=== PATIENT | female | born 1995 | race Caucasian/White ===

== ENCOUNTER 2016-12-12 21:07 | Emergency (ER) | payer OTHER ==
[2016-12-12 21:18] VITALS: BMI 19.0
[2016-12-12] MEDS ORDERED: ACETAMINOPHEN 1000 MG/100 ML VIAL (NON FORMULARY) IVPB ONE (21:37)
--- NOTE | 2016-12-12 21:39 | PDOC ---
[id number] No Limitations - History of Present Illness Initial Comments: 12/12/16 21:33 Patient is a 21 year old female with no past medical history complaining of left breast pain since 10 am, associated with fever. States she noticed a painful lump in the left breast. Pain is 6/10, worse when palpated. No prior episode of these symptoms. She took Advil at 6 PM without relief of symptoms. She is not breast-feeding, denies . LMP 12/08/16. No family history of breast cancer. Denies cough, dysuria, PMHx: neg PSocHX: neg etoh, drug, cig PFamHx: neg for breast CA ALL: NKDA GENERAL/CONSTITUTIONAL: (+) fever or chills. No weakness. No weight change.] HEAD, EYES, EARS, NOSE AND THROAT: [No change in vision. No ear pain or discharge. No sore throat.] CARDIOVASCULAR: [No chest pain or shortness of breath.] RESPIRATORY: [No cough, wheezing, or hemoptysis.] GASTROINTESTINAL: [No nausea, vomiting, diarrhea or constipation. No rectal bleeding.] GENITOURINARY: [No dysuria, frequency, or change in urination.] MUSCULOSKELETAL: [No joint or muscle swelling or pain. No neck or back pain.] SKIN AND BREASTS: [No rash or easy bruising.] NEUROLOGIC: [No headache, vertigo, loss of consciousness, or loss of sensation.] PSYCHIATRIC: [No depression or anxiety.] ENDOCRINE: [No increased thirst. No abnormal weight change.] HEMATOLOGIC/LYMPHATIC: [No anemia, easy bleeding, or history of blood clots.] ALLERGIC/IMMUNOLOGIC: [No hives or skin allergy. No latex allergy.] GENERAL: [The patient is awake, alert, and fully oriented, in moderate distress. ] HEAD: [Normal with no signs of trauma.] EYES: [Pupils equal, round and reactive to light, extraocular movements intact, sclera anicteric, conjunctiva clear.] ENT: [Ears normal, nares patent, oropharynx clear without exudates. Moist mucous membranes.] NECK: [Normal range of motion, supple without lymphadenopathy, JVD, or masses.] LUNGS: [Breath sounds equal, clear to auscultation bilaterally. No wheezes, and no crackles.] HEART: [Regular rate and rhythm, normal S1 and S2 without murmur, rub.] BREAST: (+) tenderness mass to the medial aspect of the left breast 6x6 cm, no nipple discharge, no wrinkling of skin, normal skin ABDOMEN: [Soft, nontender, normoactive bowel sounds. No guarding, no rebound. No masses.] EXTREMITIES: [Normal range of motion, no edema. No clubbing or cyanosis. No cords, erythema, or tenderness.] NEUROLOGICAL: [Cranial nerves II through XII grossly intact. Normal speech, normal gait.] PSYCH: [Normal mood, normal affect.] SKIN: [Warm, Dry, normal turgor, no rashes or lesions noted.] <Tejal Daily - Last Filed: 12/13/16 05:26> <Jacinta Johnson - Last Filed: 12/17/16 17:14> - General Chief Complaint: Pain Stated Complaint: CHEST PAIN Time Seen by Provider: 12/12/16 21:23 Past History - Past Medical History Asthma: No Cancer: No Cardiac Disorders: No Diabetes: No HTN: No Seizures: No Thyroid Disease: No - Immunization History Immunization Up to Date: Yes - Psycho/Social/Smoking Cessation Hx Anxiety: No Suicidal Ideation: No Smoking History: Never smoked Have you smoked in the past 12 months: No Hx Alcohol Use: No Drug/Substance Use Hx: No Substance Use Type: None Hx Substance Use Treatment: No <Tejal Daily - Last Filed: 12/13/16 05:26> <Jacinta Johnson - Last Filed: 12/17/16 17:14> - Past Medical History Allergies/Adverse Reactions: Allergies Allergy/AdvReac Type Severity Reaction Status Date / Time No Known Allergies Allergy Verified 12/12/16 21:12 Home Medications: Ambulatory Orders Amoxicillin/Potassium Clav [Augmentin 875-125 Tablet] 1 each PO BID #20 tablet 12/13/16 Naproxen Sodium [Midol] 220 mg PO BID #10 tablet 12/13/16 *Physical Exam - Vital Signs Last Vital Signs Temp Pulse Resp BP Pulse Ox 100.4 F H 113 H 18 91/51 98 12/12/16 21:12 12/12/16 21:12 12/12/16 21:12 12/12/16 21:12 12/12/16 21:12 <AbimbolaTejal - Last Filed: 12/13/16 05:26> - Vital Signs Last Vital Signs Temp Pulse Resp BP Pulse Ox 98.6 F 69 18 109/63 100 12/13/16 01:41 12/13/16 01:37 12/13/16 01:37 12/13/16 01:37 12/13/16 01:37 <Jacinta Johnson - Last Filed: 12/17/16 17:14> ED Treatment Course - LABORATORY CBC & Chemistry Diagram: 12/12/16 21:40 12/12/16 21:40 <ChapinLawrenceTejal - Last Filed: 12/13/16 05:26> - LABORATORY CBC & Chemistry Diagram: 12/12/16 21:40 12/12/16 21:40 - ADDITIONAL ORDERS Additional order review: 12/12/16 21:40 Blood Culture - Preliminary Blood - Peripheral Venous NO GROWTH OBTAINED AFTER 96 HOURS, INCUBATION TO CONTINUE FOR 1 DAYS. 12/12/16 21:40 Blood Culture - Preliminary Blood - Peripheral Venous NO GROWTH OBTAINED AFTER 96 HOURS, INCUBATION TO CONTINUE FOR 1 DAYS. 12/12/16 21:40 RBC 4.37 MCV 89.3 MCHC 33.1 RDW 14.6 D MPV 7.1 L D Neutrophils % 83.7 H D Lymphocytes % 6.9 L D Monocytes % 2.9 L Eosinophils % 6.2 H Basophils % 0.3 - Medications Given in the ED: ED Medications Discontinued Medications Generic Name Dose Route Start Last Admin Trade Name Abida PRN Reason Stop Dose Admin Acetaminophen 1,000 mg 12/12/16 21:37 12/12/16 21:45 Ofirmev Injection - IVPB 12/12/16 21:38 1,000 mg ONCE ONE Administration Amoxicillin/Clavulanate Potassium 1 tab 12/13/16 01:15 12/13/16 01:18 Augmentin - 875mg Tablet PO 12/13/16 01:16 1 tab ONCE ONE Administration <Jacinta Johnson - Last Filed: 12/17/16 17:14> Medical Decision Making - Medical Decision Making 12/12/16 21:33 Patient is a 21 year old female with no past medical history complaining of left breast pain since 10 am, associated with fever with a discrete 4 x 4 tender mass on exam. Will have to rule out abscess. Ultrasound breasts, labs, Tylenol IV and IV fluids. Labs reviewed noted to have WBC of 12.7, but UA is negative 12/13/16 00:00 Called by radiology to report no acute findings on the breasts ultrasound, no abscess. However a final report will be sent by the Mammo specialist is in the morning. Procedure: Under sterile techinque, needle aspiration done with no fluid return. Patient was put on Augmentin 875 mg by mouth in the ER, and was instructed to return in 24 hours to the fast track area without fail for reassessment. The area of the swelling was marked instructed that if it goes beyond to return to the emergency room right away. ician within 24-72 hours. 12/13/16 01:44 Selected Entries 12/13/16 12/13/16 01:37 01:41 Temperature 98.6 F Pulse Rate [ 69 Right Apical] Blood Pressure 109/63 [Right Arm] O2 Sat by Pulse 100 Oximetry (%) I discussed the physical exam findings, ancillary test results and final diagnoses with the patient. I answered all of the patient's questions. The patient was satisfied with the care received and felt comfortable with the discharge plan and treatment plan. The Patient agrees to follow up with the primary care physician within 24-72 hours. <Tejal Daily - Last Filed: 12/13/16 05:26> *DC/Admit/Observation/Transfer <Tejal Daily - Last Filed: 12/13/16 05:26> <Jacinta Johnson - Last Filed: 12/17/16 17:14> Diagnosis at time of Disposition: Breast abscess Fever Qualifiers: Fever type: unspecified Qualified Code(s): R50.9 - Fever, unspecified - Discharge Dispostion Disposition: HOME Condition at time of disposition: Stable - Prescriptions Prescriptions: Amoxicillin/Potassium Clav [Augmentin 875-125 Tablet] 1 each PO BID #20 tablet - Referrals Referrals: Rosa Veloz [Primary Care Provider] - - Patient Instructions Printed Discharge Instructions: DI for Skin Abscess Additional Instructions: I discussed the physical exam findings, ancillary test results and final diagnoses with the patient. I answered all of the patient's questions. The patient was satisfied with the care received and felt comfortable with the discharge plan and treatment plan. The Patient agrees to follow up with the primary care physician within 24-72 hours. You must return within 24 hours for reassessment. Continue antibiotics as prescribed, take Tylenol and Motrin as scheduled for the next 24 hours.
[2016-12-12] MEDS ORDERED: ACETAMINOPHEN INJECTION 100 ML IVPB ONE (21:53)
[2016-12-12 21:54] LABS: BASOPHIL 0.3 % (0-2.0); EOSINOPHIL 6.2 % (0-4.5); MCH 29.6 pg (25.7-33.7); MCHC 33.1 g/dl (32.0-36.0); MEAN CELL VOLUME 89.3 fl (80-96); MEAN PLT VOLUME 7.1 fl (7.5-11.1); NEUTROPHILS 83.7 % (42.8-82.8); PLATELET COUNT 307 K/MM3 (134-434); RDW 14.6 % (11.6-15.6); WHITE BLOOD COUNT 12.5 K/mm3 (4.0-10.0)
[2016-12-12 22:19] LABS: ALK PHOS 82 U/L (45-117); ANION GAP 9 (8-16); BILIRUBIN,TOTAL 0.7 mg/dL (0.2-1.0); CALCIUM 9.2 mg/dL (8.5-10.1); CO2 27 mmol/L (21-32); CREATININE 0.7 mg/dL (0.55-1.02); GLUCOSE,RANDOM 91 mg/dL (74-106); SGOT/AST 20 U/L (15-37); SGPT/ALT 27 U/L (12-78); TOT PROT 7.4 g/dl (6.4-8.2)
[2016-12-12 22:23] LABS: URINE APPEARANCE CLEAR; URINE BILIRUBIN NEGATIVE (NEGATIVE); URINE BLOOD NEGATIVE (NEGATIVE); URINE COLOR LTYELLOW; URINE GLUCOSE (UA) NEGATIVE (NEGATIVE); URINE KETONE NEGATIVE (NEGATIVE); URINE LEUK ESTERASE NEGATIVE (NEGATIVE); URINE NITRITE NEGATIVE (NEGATIVE); URINE PROTEIN NEGATIVE (NEGATIVE); URINE UROBILINOGEN NEGATIVE E.U./dl (0.2-1.0)
[2016-12-13] MEDS ORDERED: LIDOCAINE HCL 2% (20ML MULTI-DOSE VIAL) NR ONE (00:21)
[2016-12-13] MEDS ORDERED: AMOX TR/POT CLAV 875MG/125MG TABLETS (FP) PO ONE (01:15)
[2016-12-13] MEDS ORDERED: AMOX TR/POT CLAV 875MG/125MG TABLETS (FP) ONE (01:20)
[2016-12-13 01:38] VITALS: BP 109/63; PULSE 69
[2016-12-13 01:42] VITALS: TEMP 98.6
== END 2016-12-13 02:12 | disposition home or self-care (01) ==
LOC: JER 21:07
PROC: 3E033NZ Introduction of Analgesics, Hypnotics, Sedatives into Peripheral Vein, Percutaneous Approach (ICD-10-PCS; principal; 2016-12-12)
DX: N61.1 Abscess of the breast and nipple (principal); R50.9 Fever, unspecified
CPT/HCPCS: 36415; 76641-TC-LT; 80053; 81003; 83605; 84703; 85025; 87040; 96374; 99283-25

== ENCOUNTER 2016-12-13 08:47 | Emergency (ER) | payer OTHER ==
[2016-12-13 08:55] VITALS: BP 92/60; PULSE 119; TEMP 99.3; BMI 19.1
--- NOTE | 2016-12-13 10:08 | PDOC ---
History of Present Illness - General Chief Complaint: Revisit,Wound Recheck Stated Complaint: ABSCESS (FOLLOW-UP) Time Seen by Provider: 12/13/16 09:09 - History of Present Illness Initial Comments: 12/13/16 10:07 CHIEF COMPLAINT: abscess to L breast HISTORY OF PRESENT ILLNESS: 21 yo F with no PMH presents to ED with worsening breast abscess to L breast. Patient states she noticed a painful lump on her breast yesterday and was seen in the ER. Per chart history, she was given a dose of Augmentin 875 and discharged to home with area of redness/swelling circumscribed. Patient complains if increased pain, hardness, and that the swelling has spread past where it was marked. She reports having a fever this morning and took a Tylenol around 7 am. No recent travel or sick contacts. PAST MEDICAL HISTORY: Denies past medical history FAMILY HISTORY: Denies SOCIAL HISTORY: Denies tobacco, alcohol, illicit drug use. SURGICAL HISTORY: Denies ALLERGIES: No known drug allergies REVIEW OF SYSTEMS General/Constitutional: Fever this morning. Denies weakness, weight change. HEENT: Denies change in vision. Denies ear pain or discharge. Denies sore throat. Cardiovascular: Denies chest pain or shortness of breath. Respiratory: Denies cough, wheezing, or hemoptysis. Gastrointestinal: Denies nausea, vomiting, diarrhea or constipation. Denies rectal bleeding. Genitourinary: Denies dysuria, frequency, or change in urination. Musculoskeletal: Denies joint or muscle swelling or pain. Denies neck or back pain. Skin and breasts: Painful swelling to L breast. Neurologic: Denies headache, vertigo, loss of consciousness, or loss of sensation. PHYSICAL EXAM General Appearance: Well-appearing, appropriately dressed. No apparent distress. HEENT: EOMI, PERRLA, normal ENT inspection, normal voice, TMs normal, pharynx normal. No conjunctival pallor. No photophobia, scleral icterus. Neck: Supple. Trachea midline. Respiratory/Chest: Lungs CTAB. Cardiovascular: RRR. Lymphatic: No adenopathy, tenderness. Musculoskeletal/Extremities: Normal inspection. FROM of all extremities, normal capillary refill. Pelvis Stable. No CVA tenderness. No tenderness to extremities, pedal edema, swelling, erythema or deformity. Integumentary: Mildly erythematous, indurated mass to L breast, very tender to palpation. Appropriate color, dry, warm. No cyanosis, erythema, jaundice or rash Neurologic: writing center director II-XII intact. Fully oriented, alert. Appropriate mood/affect. Motor strength 5/5. No appreciable EOM palsy, facial droop or sensory deficit. 12/13/16 10:39 Past History - Past Medical History Allergies/Adverse Reactions: Allergies Allergy/AdvReac Type Severity Reaction Status Date / Time No Known Allergies Allergy Verified 12/13/16 08:55 Home Medications: Ambulatory Orders Amoxicillin/Potassium Clav [Augmentin 875-125 Tablet] 1 each PO BID #20 tablet 12/13/16 Naproxen Sodium [Midol] 220 mg PO BID #10 tablet 12/13/16 Asthma: No Cancer: No Cardiac Disorders: No Diabetes: No HTN: No Seizures: No Thyroid Disease: No - Immunization History Immunization Up to Date: Yes - Psycho/Social/Smoking Cessation Hx Anxiety: No Suicidal Ideation: No Smoking History: Never smoked Have you smoked in the past 12 months: No Hx Alcohol Use: No Drug/Substance Use Hx: No Substance Use Type: None Hx Substance Use Treatment: No *Physical Exam - Vital Signs Last Vital Signs Temp Pulse Resp BP Pulse Ox 99.3 F 119 H 20 92/60 96 12/13/16 08:51 12/13/16 08:51 12/13/16 08:51 12/13/16 08:51 12/13/16 08:51 ED Treatment Course - LABORATORY CBC & Chemistry Diagram: 12/13/16 10:35 12/13/16 10:35 Medical Decision Making - Medical Decision Making 12/13/16 11:26 21 yo F with no PMH returns to ED for swollen/painful mass to L breast accompanied by fever. -CBC, CMP -Ibuprofen 800 mg -Vancomycin 1 g IV Patient reassessed after administration of Ibuprofen, patient states pain is improved. Patient HR now 88. Will discharge home, advised patient to cook pickled meat prescription that was sent last night. Advised patient of signs and symptoms for return to ED. Patient verbalized understanding and agrees to plan. *DC/Admit/Observation/Transfer Diagnosis at time of Disposition: Mastitis - Discharge Dispostion Disposition: HOME Admit: No - Prescriptions Prescriptions: Naproxen Sodium [Midol] 220 mg PO BID #10 tablet - Referrals Referrals: Rosa Veloz [Primary Care Provider] - - Patient Instructions Printed Discharge Instructions: DI for Mastitis Additional Instructions: Please cook pickled meat the prescription today and begin taking it tonight. If the redness or swelling does not reduce in 48 hours despite taking the medication, or you develop fever, nausea, vomiting, or any new or worsening symptoms, please return to the ED.
[2016-12-13] MEDS ORDERED: IBUPROFEN 400 MG TABLET (FP) PO ONE ×2 (10:31→10:50)
[2016-12-13 10:54] LABS: MCH 30.1 pg (25.7-33.7); MCHC 33.1 g/dl (32.0-36.0); MEAN CELL VOLUME 91.1 fl (80-96); MEAN PLT VOLUME 7.1 fl (7.5-11.1); PLATELET COUNT 243 K/MM3 (134-434); RDW 14.7 % (11.6-15.6); WHITE BLOOD COUNT 17.4 K/mm3 (4.0-10.0)
[2016-12-13] MEDS ORDERED: VANCOMYCIN 1,000 MG in DEXTROSE 5%-WATER - 250 ML IVPB ONE (10:56)
[2016-12-13 11:23] LABS: ALBUMIN 3.4 g/dl (3.4-5.0); ANION GAP 10 (8-16); BILIRUBIN,TOTAL 1.2 mg/dL (0.2-1.0); CALCIUM 8.6 mg/dL (8.5-10.1); CO2 24 mmol/L (21-32); CREATININE 0.6 mg/dL (0.55-1.02); GLUCOSE,RANDOM 91 mg/dL (74-106); SGOT/AST 35 U/L (15-37); SGPT/ALT 38 U/L (12-78); TOT PROT 6.9 g/dl (6.4-8.2)
[2016-12-13 11:24] LABS: ALK PHOS 67 U/L (45-117)
[2016-12-13] MEDS ORDERED: VANCOMYCIN 1 GRAM (PRE-DOCKED) 250 ML IVPB ONE (11:26)
== END 2016-12-13 12:47 | disposition home or self-care (01) ==
LOC: JERFT 08:47 → JER 08:47
DX: N61.1 Abscess of the breast and nipple (principal)
CPT/HCPCS: 36415; 80053; 85025; 96365; 99281-25

== ENCOUNTER 2017-02-23 23:40 | Emergency (ER) | payer OTHER ==
--- NOTE | 2017-02-23 23:46 | PDOC ---
[id number] my direct supervision Ancillary studies reviewed I agree with plan as outlined by the Advanced Practice Provider GRICEL Bell *DC/Admit/Observation/Transfer Diagnosis at time of Disposition: UTI (urinary tract infection) - Discharge Dispostion Disposition: HOME Condition at time of disposition: Stable - Prescriptions Prescriptions: Nitrofurantoin Monohyd/M-Cryst [Macrobid -] 100 mg PO BID #14 capsule - Referrals Referrals: Rosa Veloz [Primary Care Provider] - Godfrey Juan MD., [Staff Physician] - - Patient Instructions Printed Discharge Instructions: Urinary Tract Infection Additional Instructions: Increase fluids Take antibiotics as directed: Macrobid 100 mg 1 tablet twice a day for 7 days Pelvic rest Follow with your physician or the urologist listed on your discharge Return back to the emergency department for severe/persistent or worsening symptoms
[2017-02-24 00:13] VITALS: BP 112/74; PULSE 86; TEMP 98.9; BMI 23.4
[2017-02-24 00:23] LABS: URINE APPEARANCE CLEAR; URINE BILIRUBIN NEGATIVE (NEGATIVE); URINE COLOR AMBER; URINE GLUCOSE (UA) NEGATIVE (NEGATIVE); URINE KETONE NEGATIVE (NEGATIVE); URINE NITRITE POSITIVE (NEGATIVE); URINE PROTEIN NEGATIVE (NEGATIVE); URINE UROBILINOGEN 4.0 E.U/dl E.U./dl (0.2-1.0)
[2017-02-24 01:20] LABS: URINE BLOOD 2+ (NEGATIVE); URINE LEUK ESTERASE 3+ (NEGATIVE)
--- NOTE | 2017-02-24 01:27 | PDOC ---
History of Present Illness - General Chief Complaint: Urinary Problem Stated Complaint: URINARY PROBLEM/ABD PAIN Time Seen by Provider: 02/23/17 23:46 History Source: Patient - History of Present Illness Initial Comments: 02/24/17 01:32 21-year-old female presents to the emergency department complaining of urinary frequency/urgency/hesitancy 6 hours without hematuria, nausea/vomiting, fever/ chills, chest pain, shortness of breath, abdominal pains, flank pains. Patient states she's had cystitis previously and symptoms feel similar. LMP x4d ago Timing/Duration: 4-6 hours Associated Symptoms: reports: denies symptoms Past History - Travel Traveled outside of the country in the last 30 days: No Close contact w/someone who was outside of country & ill: No - Past Medical History Allergies/Adverse Reactions: Allergies Allergy/AdvReac Type Severity Reaction Status Date / Time No Known Allergies Allergy Verified 02/23/17 23:52 Home Medications: Ambulatory Orders Nitrofurantoin Monohyd/M-Cryst [Macrobid -] 100 mg PO BID #14 capsule 02/24/17 Asthma: No Cancer: No Cardiac Disorders: No Diabetes: No HTN: No Seizures: No Thyroid Disease: No - Reproductive History Is Patient Now?: No Therapeutic (s) & number: No - Immunization History Immunization Up to Date: Yes - Psycho/Social/Smoking Cessation Hx Anxiety: No Suicidal Ideation: No Smoking History: Never smoked Have you smoked in the past 12 months: No Information on smoking cessation initiated: No Hx Alcohol Use: No Drug/Substance Use Hx: No Substance Use Type: None Hx Substance Use Treatment: No Review of Systems - Review of Systems Able to Perform ROS?: Yes Comments:: 02/24/17 01:32 CONSTITUTIONAL: Absent: fever, chills, diaphoresis, generalized weakness, malaise, loss of appetite HEENT: Absent: rhinorrhea, nasal congestion, throat pain, throat swelling, difficulty swallowing, mouth swelling, ear pain, eye pain, visual Changes CARDIOVASCULAR: Absent: chest pain, loss of consciousness, palpitations, irregular heart rate, peripheral edema RESPIRATORY: Absent: cough, shortness of breath, dyspnea with exertion, orthopnea, wheezing, stridor, hemoptysis GASTROINTESTINAL: Absent: abdominal pain, abdominal distension, nausea, vomiting, diarrhea, constipation, melena, hematochezia GENITOURINARY: +frequency, urgency, hesitancy Absent: dysuria, hematuria, flank pain, genital pain MUSCULOSKELETAL: Absent: myalgia, arthralgia, joint swelling SKIN: Absent: rash, itching, pallor HEMATOLOGIC/IMMUNOLOGIC: Absent: easy bleeding, easy bruising, lymphadenopathy, frequent infections ENDOCRINE: Absent: unexplained weight gain, unexplained weight loss, heat intolerance, cold intolerance NEUROLOGIC: Absent: headache, focal weakness or paresthesias, dizziness, unsteady gait, seizure, mental status changes, bladder or bowel incontinence PSYCHIATRIC: Absent: anxiety, depression, suicidal or homicidal ideation, hallucinations. Is the patient limited [place] proficient: No *Physical Exam - Vital Signs Last Vital Signs Temp Pulse Resp BP Pulse Ox 98.9 F 86 20 112/74 99 02/23/17 23:53 02/23/17 23:53 02/23/17 23:53 02/23/17 23:53 02/23/17 23:53 - Physical Exam Comments: 02/24/17 01:32 GENERAL: Well developed, well nourished. Awake and alert. No acute distress. HEENT: Normocephalic, atraumatic. PERRLA, EOMI. No conjunctival pallor. Sclera are non- icteric. Moist mucous membranes. Oropharynx is clear. NECK: Supple. Full ROM. No JVD. Carotid pulses 2+ and symmetric, without bruits. No thyromegaly. No lymphadenopathy. CARDIOVASCULAR: Regular rate and rhythm. No murmurs, rubs, or gallops. Distal pulses are 2+ and symmetric. PULMONARY: No evidence of respiratory distress. Lungs clear to auscultation bilaterally. No wheezing, rales or rhonchi. ABDOMINAL: Soft. Non-tender. Non-distended. No rebound or guarding. No organomegaly. Normoactive bowel sounds. MUSCULOSKELETAL Normal range of motion at all joints. No bony deformities or tenderness. No CVA tenderness. EXTREMITIES: No cyanosis. No clubbing. No edema. No calf tenderness. SKIN: Warm and dry. Normal capillary refill. No rashes. No jaundice. NEUROLOGICAL: Alert, awake, appropriate. Cranial nerves 2-12 intact. No deficits to light touch and temperature in face, upper extremities and lower extremities. No motor deficits in the in face, upper extremities and lower extremities. Normoreflexic in the upper and lower extremities. Normal speech. Toes are down- going bilaterally. Gait is normal without ataxia. PSYCHIATRIC: Cooperative. Good eye contact. Appropriate mood and affect. ED Treatment Course - ADDITIONAL ORDERS Additional order review: Laboratory Results 02/23/17 23:50 Urine Color Delia Urine Appearance Clear Urine pH 6.0 Ur Specific [place] 1.004 Urine Protein Negative Urine Glucose (UA) Negative Urine Ketones Negative Urine Blood 2+ H Urine Nitrite Positive Urine Bilirubin Negative Urine Urobilinogen 4.0 e.u/dl H Ur Leukocyte Esterase 3+ H Urine HCG, Qual Negative *DC/Admit/Observation/Transfer Diagnosis at time of Disposition: UTI (urinary tract infection) Qualifiers: Urinary tract infection type: acute cystitis Hematuria presence: without hematuria Qualified Code(s): N30.00 - Acute cystitis without hematuria - Discharge Dispostion Disposition: HOME Condition at time of disposition: Stable Admit: No - Prescriptions Prescriptions: Nitrofurantoin Monohyd/M-Cryst [Macrobid -] 100 mg PO BID #14 capsule - Referrals Referrals: Rosa Veloz [Primary Care Provider] - Godfrey Juan MD., [Staff Physician] - - Patient Instructions Printed Discharge Instructions: Urinary Tract Infection Additional Instructions: Increase fluids Take antibiotics as directed: Macrobid 100 mg 1 tablet twice a day for 7 days Pelvic rest Follow with your physician or the urologist listed on your discharge Return back to the emergency department for severe/persistent or worsening symptoms
[2017-02-24] MEDS ORDERED: NITROFURANTOIN MACROCRYSTAL 50 MG CAPSULE (FP) PO SCH (01:30)
[2017-02-24] MEDS ORDERED: NITROFURANTOIN MACROCRYSTAL 50 MG CAPSULE (FP) ONE (01:39)
[2017-02-24 01:41] LABS: URINE WBC 222 /hpf (3-5)
== END 2017-02-24 01:40 | disposition home or self-care (01) ==
LOC: JER 23:40
DX: N30.00 Acute cystitis without hematuria (principal)
CPT/HCPCS: 81003; 81015; 84703; 87086; 87186; 99282-25